=== PATIENT | male | born 1950 | race Caucasian/White ===

== ENCOUNTER → 2022-07-06 14:50 | Outpatient (BNVA) | payer MEDICARE, OTHER, SELFPAY | PROVIDERS: Family Provider Family Medicine; PCP Family Medicine; Visit Provider Internal Medicine Cardiovascular Disease | DX: R00.1 Bradycardia, unspecified (principal); I48.0 Paroxysmal atrial fibrillation; I10 Essential (primary) hypertension; Z98.890 Other specified postprocedural states; E78.5 Hyperlipidemia, unspecified; E03.9 Hypothyroidism, unspecified; Z87.891 Personal history of nicotine dependence | CPT/HCPCS: 93005; 99214 ==

== ENCOUNTER → 2023-03-09 10:24 | Outpatient (BNVA) | payer MEDICARE, OTHER, SELFPAY | PROVIDERS: Family Provider Family Medicine; PCP Family Medicine; Visit Provider Internal Medicine Cardiovascular Disease | DX: R00.1 Bradycardia, unspecified (principal); E78.5 Hyperlipidemia, unspecified; Z98.890 Other specified postprocedural states; I10 Essential (primary) hypertension; I48.0 Paroxysmal atrial fibrillation; Z79.01 Long term (current) use of anticoagulants | CPT/HCPCS: 99213 ==

== ENCOUNTER → 2023-08-31 10:04 | Outpatient (BNVA) | payer MEDICARE, OTHER, SELFPAY | PROVIDERS: Family Provider Family Medicine; PCP Family Medicine; Visit Provider Internal Medicine Cardiovascular Disease | DX: I48.0 Paroxysmal atrial fibrillation (principal); Z79.01 Long term (current) use of anticoagulants; R00.1 Bradycardia, unspecified; E78.5 Hyperlipidemia, unspecified; Z98.890 Other specified postprocedural states; I10 Essential (primary) hypertension; Z87.891 Personal history of nicotine dependence | CPT/HCPCS: 99213 ==

== ENCOUNTER → 2024-03-13 13:18 | Outpatient (BNVA) | payer MEDICARE, SELFPAY | PROVIDERS: Family Provider Family Medicine; PCP Family Medicine; Visit Provider Internal Medicine Cardiovascular Disease | DX: I48.0 Paroxysmal atrial fibrillation (principal); I10 Essential (primary) hypertension; Z98.890 Other specified postprocedural states; E78.5 Hyperlipidemia, unspecified; R00.1 Bradycardia, unspecified; Z79.01 Long term (current) use of anticoagulants | CPT/HCPCS: 99213 ==

== ENCOUNTER → 2024-09-15 16:52 | Outpatient (BNVA) | payer MEDICARE, OTHER, SELFPAY | PROVIDERS: Family Provider Family Medicine; PCP Family Medicine; Visit Provider Internal Medicine Cardiovascular Disease | DX: I48.0 Paroxysmal atrial fibrillation (principal); I45.10 Unspecified right bundle-branch block; R00.1 Bradycardia, unspecified | CPT/HCPCS: 93005 ==

== ENCOUNTER 2025-02-13 05:58 | Outpatient (CLI) | payer MEDICARE, OTHER, SELFPAY ==
--- NOTE | 2025-02-13 06:15 | USCV_ITS ---
Jesu Moore Age: 74 Gender: M : 1950 Exam Date: 02/13/2025 06:20 Ordering Phys: Colton Shields MD Technologist: Noel Ramirez Exam Location: [facility] [place] Indication: a fib BP: 144 / 80 HR: 57 Rhythm: Sinus Technical Quality: Adequate MEASUREMENTS (Male / Female) Normal Values 2D ECHO LV Diastolic Diameter PLAX 4.3 cm 4.2 - 5.9 / 3.9 - 5.3 cm IVS Diastolic Thickness 1.0 cm 0.6 - 1.0 / 0.6 - 0.9 cm IVS Systolic Thickness 1.4 cm LVPW Diastolic Thickness 1.9 cm 0.6 - 1.0 / 0.6 - 0.9 cm LVPW Systolic Thickness 1.5 cm LVOT Diameter 2.0 cm LV Ejection Fraction 2D Teich 61.5 % LV Ejection Fraction MOD 4C 72.4 % LV Ejection Fraction MOD 2C 68.5 % LV Ejection Fraction 2C AL 67.5 % LA Diameter 3.5 cm RA Systolic Volume 4C AL 44.9 ml RA Systolic Volume 4C MOD 47.7 ml LA Sys Volume AL 70.1 cm cubed LA Sys Volume Index AL 33.3 cm cubed/m squared Aorta at Sinotubular Diameter 3.1 cm IVC Diameter 1.9 cm M-MODE LA Ao Ratio MM 1.2 AV Cusp Separation MM 2.3 cm DOPPLER AV Peak Velocity 115.0 cm/s LVOT Peak Velocity 107.0 cm/s AV Area Cont Eq vti 3.0 cm squared AV Area Cont Eq pk 3.0 cm squared MV Peak Velocity 224.0 cm/s MV Area PHT 2.4 cm squared Mitral E to A Ratio 4.3 TR Peak Velocity 323.0 cm/s TR Peak Gradient 41.7 mmHg TR Mean Velocity 237.0 cm/s TR Mean Gradient 25.4 mmHg TR Velocity Time Integral 85.3 cm PV Peak Velocity 65.0 cm/s RV Ejection Time 0.3 s FINDINGS Left Ventricle Normal left ventricular size, systolic function and wall thickness, with no regional wall motion abnormalities. Left ventricular ejection fraction is estimated at 65 %. Grade III/IV diastolic dysfunction (restrictive filling pattern), severely elevated filling pressures. Right Ventricle The right ventricle is normal in size and function. Right Atrium The right atrium is normal in size. Left Atrium Moderately increased left atrial size. Mitral Valve Moderately thickened mitral valve. Severe mitral annular calcification. No mitral valve stenosis. Moderate mitral valve regurgitation. Aortic Valve Moderate aortic valve calcification. No aortic valve stenosis. Milld aortic valve regurgitation. Tricuspid Valve Structurally normal tricuspid valve without significant stenosis or regurgitation. Pulmonary artery systolic pressure is normal. Pulmonic Valve Structurally normal pulmonic valve without significant stenosis. There is no pulmonic regurgitation. Pericardium Normal pericardium without effusion. Aorta Normal ascending aorta dimension. IVC The inferior vena cava appears normal. CONCLUSIONS Normal left ventricular size, systolic function and wall thickness, with no regional wall motion abnormalities. Left ventricular ejection fraction is estimated at 65 %. Grade III/IV diastolic dysfunction (restrictive filling pattern), severely elevated filling pressures. Moderately increased left atrial size. Moderately thickened mitral valve. Severe mitral annular calcification. No mitral valve stenosis. Moderate mitral valve regurgitation Moderate aortic valve calcification. No aortic valve stenosis. Milld aortic valve regurgitation. There is no pericardial effusion. Right atrial pressure is around mm of mercury. Thomas De Leon MD (Electronically Signed) Final Date: 27 February 2025 20:08 S
== END 2025-02-13 05:59 | disposition home or self-care (01) ==
PROVIDERS: Family Provider Family Medicine; PCP Family Medicine; Visit Provider Family Medicine
DX: I48.91 Unspecified atrial fibrillation (principal); I08.0 Rheumatic disorders of both mitral and aortic valves
CPT/HCPCS: 93306

== ENCOUNTER 2025-03-05 10:02 | Outpatient (CLI) | payer MEDICARE, OTHER, SELFPAY ==
--- NOTE | 2025-03-05 10:07 | CT_ITS ---
WS: [id number] CT ABDOMEN AND PELVIS WITH AND WITHOUT CONTRAST HISTORY: BLOOD IN URINE TECHNIQUE: Unenhanced 3 mm axial imaging first performed through the abdomen. Post contrast imaging through the abdomen and pelvis. Oral contrast has not been provided. Sagittal and coronal reformats are submitted. All CT scans at [facility] use at least one of these dose optimization techniques: automated exposure control; mA and/or kV adjustment per patient size (includes targeted exams where dose is matched to clinical indication); or iterative reconstruction. CONTRAST: Omnipaque 350; 95 mL IV. DLP: 2030.19 mGy.cm COMPARISON: None available. 2 mm granuloma RIGHT lung base. No pneumonia. Moderate cardiomegaly. Prior CABG. Small hiatal hernia. RIGHT kidney: Normal size with no calcifications. No hydronephrosis. There are several tiny cortical cysts which do not enhance. No uroepithelial lesion. On the delayed imaging the ureter is nearly completely opacified with contrast. No filling defects. LEFT kidney: Normal size with no renal calcification or obstruction. No enhancing mass. 1.5 cm cortical cyst posterior upper pole. There is a small septation present with 2 adjacent cysts. Neither of these enhance. No uroepithelial lesions. Near complete opacification of the ureter. There is a slightly bulbous appearance of the distal LEFT ureter the ureter then becomes narrowed but no discrete mass is identified. There is no hydronephrosis. Marked bladder wall thickening throughout. Prostate gland is markedly enlarged encroaching into the urinary bladder. Heterogeneous prostate gland with calcifications. There is encroachment into the bladder. 1.4 cm cyst LEFT lobe of the liver. There are few additional scattered hypodensities which do not enhance. Normal portal vein. Gallbladder is slightly contracted. Normal spleen with granulomata. Mild pancreatic atrophy. No adrenal mass. No ascites or adenopathy. No GI tract obstruction. Constipation. No colitis or obstruction of the GI tract. Increase in lumbar lordosis. Lumbar scoliosis. No destructive bone lesions. CT/CT abdomen pelvis wo/w [id number] IMPRESSION: 1. No hydronephrosis or renal calcification. 2. 2 adjacent simple cysts or is single cyst with thin septation posterior upp er pole LEFT kidney. 3. Focal dilatation of the distal LEFT ureter. Beyond the dilatation the urete r is difficult to visualize and only minimally fills with contrast but appears stenotic. Evaluation by urology may be necessary. 4. Diffuse bladder wall thickening without significantly enlarged prostate gla nd encroaching into the bladder. Likely due to prostate hypertrophy with bladde r wall hypertrophy. Prostate carcinoma is not excluded by CT. 5. Diffuse constipation. 6. Moderate cardiomegaly. 7. Hepatic cyst.
[2025-03-05 11:03] LABS: Blood Urea Nitrogen 21 mg/dL (8-23)
== END 2025-03-05 10:03 | disposition home or self-care (01) ==
PROVIDERS: Family Provider Family Medicine; PCP Family Medicine; Visit Provider Family Medicine
DX: R31.9 Hematuria, unspecified (principal); N28.1 Cyst of kidney, acquired; N28.82 Megaloureter; R93.5 Abnormal findings on diagnostic imaging of other abdominal regions, including retroperitoneum; N32.89 Other specified disorders of bladder; N40.0 Benign prostatic hyperplasia without lower urinary tract symptoms; K59.00 Constipation, unspecified; I51.7 Cardiomegaly; K76.89 Other specified diseases of liver; J84.10 Pulmonary fibrosis, unspecified; Z98.890 Other specified postprocedural states; K44.9 Diaphragmatic hernia without obstruction or gangrene; R93.422 Abnormal radiologic findings on diagnostic imaging of left kidney; D73.89 Other diseases of spleen; K86.89 Other specified diseases of pancreas; M41.86 Other forms of scoliosis, lumbar region
CPT/HCPCS: 74178; 82565; 84520

== ENCOUNTER → 2025-03-25 16:04 | Outpatient (BNVA) | payer MEDICARE, OTHER, SELFPAY | PROVIDERS: Family Provider Family Medicine; PCP Family Medicine; Visit Provider Internal Medicine Cardiovascular Disease | DX: I48.0 Paroxysmal atrial fibrillation (principal); Z79.01 Long term (current) use of anticoagulants; I10 Essential (primary) hypertension; I08.0 Rheumatic disorders of both mitral and aortic valves; E78.5 Hyperlipidemia, unspecified; R31.9 Hematuria, unspecified; Z87.891 Personal history of nicotine dependence | CPT/HCPCS: 99214 ==

== ENCOUNTER 2025-07-15 07:36 | Inpatient (IN) | payer MEDICARE, OTHER, SELFPAY ==
[2025-07-15] VITALS (13 sets, daily range): BP systolic 127–145; BP diastolic 70–91; PULSE 48–72; RESP 16–17; TEMP 36.5–37.3; O2SAT 95–100; BMI 23.1
--- NOTE | 2025-07-15 07:43 | W.ED.ABDPA2 ---
HPI - Abdominal Pain General: Chief Complaint: Abdominal Pain Stated Complaint: Abd pain Time Seen by Provider: 07/15/25 07:39 History of Present Illness: 75-year-old male presents emergency room from home with complaint of right-sided abdominal pain radiating into the groin. Woke up around 3 AM this morning with severe pain. He had nausea and vomiting this morning states he feels quite a bit better now he did not have any hematochezia or melena. No fever sweats or chills. He has a known large right inguinal hernia and it has been more painful. Associated Symptoms: Denies chills, dysuria and fever(s) Related Data Home Medications ?Medication ?Instructions ?Recorded ?Confirmed acetaminophen 500 mg tablet 500 mg PO Q6H PRN Fever Or Pain 03/12/20 07/15/25 (Tylenol Extra Strength) ascorbic acid (vitamin C) 500 mg 1,000 mg PO DAILY 03/12/20 07/15/25 capsule atorvastatin 20 mg tablet 20 mg PO DAILY 03/12/20 07/15/25 clindamycin HCl 150 mg capsule 600 mg PO DIRECTED PRN 1 hour 03/12/20 07/15/25 prior to any dental procedure docusate sodium 100 mg capsule 100 mg PO DAILY PRN Constipation 03/12/20 07/15/25 (Colace) furosemide 20 mg tablet 20 mg PO DAILY 03/12/20 07/15/25 montelukast 10 mg tablet 10 mg PO DAILY PRN allergies 03/12/20 07/15/25 rivaroxaban 20 mg tablet (Xarelto) 20 mg PO DAILY 03/12/20 07/15/25 erythromycin with ethanol 2 % 1 applic topical ONCE PRN Acne 03/09/23 07/15/25 topical gel levothyroxine 137 mcg tablet See Rx Instructions .Route .COMPLEX 07/15/25 07/15/25 levothyroxine 75 mcg tablet See Rx Instructions .Route .COMPLEX 07/15/25 07/15/25 melatonin 5 mg tablet 5 mg PO BEDTIME sleep 07/15/25 07/15/25 ksyxuewf-lt-vdcgo 300 mcg-K 60 1 tab PO DAILY 07/15/25 07/15/25 mcg-lycop 600 mcg-lutein 300 mcg tablet (Centrum Silver Men) omega-3s 300 ic-dmn-yzx-other 1 cap PO DAILY 07/15/25 07/15/25 sllog2f-leyh oil 1,000 mg capsule ([place]-3 Fish Oil) polyethylene glycol 3350 17 17 g PO DAILY constipation 07/15/25 07/15/25 gram/dose oral powder (Miralax) Previous Rx's ?Medication ?Instructions ?Recorded sotalol 120 mg tablet 120 mg PO BID #180 tabs 01/16/25 Allergies Allergy/AdvReac Type Severity Reaction Status Date / Time levofloxacin (From Levaquin) Allergy Unknown Unknown Verified 03/25/25 16:34 Penicillins Allergy Unknown Unknown Verified 03/25/25 16:34 Review of Systems Const: Denies: fever(s) or chills Card: Denies: chest pain Resp: Denies: dyspnea GI: Reports: abdominal pain : Denies: dysuria, urinary frequency or urinary urgency Musc: Denies: neck pain or back pain Skin/Breast: Denies: rash PFSH ED PFSH: Medical History Anticoagulation adequate with anticoagulant therapy Hypothyroidism Hyperlipidemia History of cardioversion Multiple HTN (hypertension) Atrial fibrillation Surgical History History of mitral valve repair S/P pericardiocentesis X2 Family History Father Atrial fibrillation Brother Atrial fibrillation Other Cancer Social History Smoking and tobacco/nicotine status: former use of tobacco/nicotine Physical Exam Const: GENERAL APPEARANCE: cooperative ORIENTATION/CONSCIOUSNESS: Yes awake, Yes oriented to person, Yes oriented to place and Yes oriented to time HENMT: COMMON NORMALS: normocephalic, atraumatic and hearing grossly normal bilaterally HEAD & SCALP: normocephalic and atraumatic Resp: COMMON NORMALS: normal respiratory effort, No retractions, No use of accessory muscles and clear to auscultation bilaterally AUSCULTATION: clear to auscultation bilaterally Cardio: COMMON NORMALS: regular rate, regular rhythm and No murmurs present (Cardio) RATE: regular rate RHYTHM: regular rhythm GI: COMMON NORMALS: Soft to palpation and No hepatosplenomegaly present AUSCULTATION: Yes normoactive bowel sounds PALPATION: Yes Soft to palpation, No Tenderness to palpation present (GI), No Guarding due to palpation present (GI) and Yes No hepatosplenomegaly present : OTHER: Large right inguinal hernia with portions of bowel extending into the scrotum. Unable to reduce Extremity: COMMON NORMALS: normal to inspection, capillary refill normal, no clubbing, cyanosis or edema, no calf tenderness and no pedal edema Neuro: SENSORIUM/ORIENTATION: Yes oriented to person, Yes oriented to place and Yes oriented to time Skin: COMMON NORMALS: no rashes or lesions noted GENERAL SKIN EXAM: no rashes or lesions noted Course Vital Signs: Vital signs: Vital Signs Temperature 99.1 F 07/15/25 13:10 Pulse Rate 58 L 07/15/25 13:10 Respiratory Rate 17 07/15/25 13:10 Blood Pressure 133/73 07/15/25 13:10 Pulse Oximetry 100 07/15/25 13:10 Oxygen Delivery Me thod Room Air 07/15/25 13:10 MDM - Abdominal Pain Medical Decision Making CT shows mesocolon in the hernia had a difficult time trying to get it reduced Dr. Ford seen and felt he was able to get it to reduce but it recurred immediately. On the CT it looks like he has some tethering effect of the bowel. Dr. Ford seen the patient discussed with him offered admission for surgical repair of the hernia patient decided he would like to proceed with that. As long as he is laying flat not eating or drinking he seems to be tolerating well not having any further symptoms Medical Records I reviewed the patient's medical records. Lab Data I reviewed the patient's lab results. 07/15/25 08:10 07/15/25 08:10 Labs/Radiology: Radiology Impressions Abdomen/Pelvis CT 07/15/25 07:51 IMPRESSION: 1. Fluid-filled RIGHT inguinal hernia is new since 03/05/2025. Small bowel loop abuts the inguinal hernia with a tiny amount of herniation. This loop does not appear strangulated but there is fluid dilatation of small bowel loops in the pelvis and RIGHT lower quadrant with bowel wall thickening. 2. Induration and vessels engorgement in the RIGHT lower quadrant mesentery with swirling suggesting tethered bowel. Recommend correlation for developing small bowel obstruction or possibly ischemic bowel. No pneumatosis or free air. 3. Small amount of free fluid in the pelvis. 4. No other acute findings. Notified Fausto Be DO at 07/15/2025 8:57 AM. Laboratory Results WBC 8.13 10^3/uL (3.29-11.43) 07/15/25 08:10 RBC 4.29 10^6/uL (3.85-5.65) 07/15/25 08:10 Hgb 13.10 g/dL (11.27-16.99) 07/15/25 08:10 Hct 40.2 % (37-53) 07/15/25 08:10 MCV 93.7 fl (82-101) 07/15/25 08:10 MCH 30.5 pg (27-33) 07/15/25 08:10 MCHC 32.6 g/dL (30-55) 07/15/25 08:10 RDW 13.4 % (12.1-15.1) 07/15/25 08:10 Plt Count 167 10^3/cmm (157-399) 07/15/25 08:10 MPV 9.3 fL (7.4-10.4) 07/15/25 08:10 Neut % (Auto) 85.4 % 07/15/25 08:10 Lymph % (Auto) 8.1 % 07/15/25 08:10 Harper % (Auto) 5.5 % 07/15/25 08:10 Eos % (Auto) 0.4 % 07/15/25 08:10 Baso % (Auto) 0.2 % 07/15/25 08:10 Neut # (Auto) 6.94 10^3/uL (1.8-7.7) 07/15/25 08:10 Lymph # (Auto) 0.7 10^3/uL (0.8-4.8) L 07/15/25 08:10 Harper # (Auto) 0.5 10^3/uL (0.2-0.9) 07/15/25 08:10 Eos # (Auto) 0.0 10^3/uL (0.0-0.8) 07/15/25 08:10 Baso # (Auto) 0.0 10^3/uL (0.0-0.1) 07/15/25 08:10 Nucleated RBC % (auto) 0 % 07/15/25 08:10 Nucleated RBCs # 0.0 /100WBC 07/15/25 08:10 Sodium 139 mmol/L (136-145) 07/15/25 08:10 Potassium 4.4 mmol/L (3.5-5.1) 07/15/25 08:10 Chloride 103 mmol/L (98-107) 07/15/25 08:10 Carbon Dioxide 26 mmol/L (22-29) 07/15/25 08:10 Anion Gap 14.4 (5-19) 07/15/25 08:10 BUN 21 mg/dL (8-23) 07/15/25 08:10 Creatinine 0.8 mg/dL (0.7-1.2) 07/15/25 08:10 GFR Calculation Not Reportable 07/15/25 08:10 Glucose 151 mg/dL (65-115) H 07/15/25 08:10 Calculated Osmolality 294 mOsm/kg (285-295) 07/15/25 08:10 Lactic Acid 1.5 mmol/L (0.5-2.2) 07/15/25 08:10 Calcium 9.5 mg/dL (8.5-10.5) 07/15/25 08:10 Total Bilirubin 0.8 mg/dL (0.15-1.2) 07/15/25 08:10 AST 26 U/L (0-40) 07/15/25 08:10 ALT 28 U/L (0-41) 07/15/25 08:10 Alkaline Phosphatase 81 U/L (40-130) 07/15/25 08:10 Total Protein 6.7 g/dL (6.6-8.7) 07/15/25 08:10 Albumin 4.4 g/dL (3.5-5.2) 07/15/25 08:10 Globulin 2.3 g/dL (1.3-4.6) 07/15/25 08:10 Lipase 22 U/L (13-60) 07/15/25 08:10 Urine Color Yellow (Yellow) 07/15/25 08:45 Urine Appearance Clear (CLEAR) 07/15/25 08:45 Urine pH 7.5 (5-7) 07/15/25 08:45 Ur Specific [place] 1.018 (1.005-1.030) 07/15/25 08:45 Urine Protein Negative (Negative) 07/15/25 08:45 Urine Glucose (UA) Negative (Normal) 07/15/25 08:45 Urine Ketones 2+ (Negative) H 07/15/25 08:45 Urine Blood Negative (Negative) 07/15/25 08:45 Urine Nitrate Negative (Negative) 07/15/25 08:45 Urine Bilirubin Negative (Negative) 07/15/25 08:45 Urine Urobilinogen 1.0 mg/dL (Negative) 07/15/25 08:45 Ur Leukocyte Esterase 1+ (Negative) A 07/15/25 08:45 Urine RBC 0-2 /hpf (0-2) 07/15/25 08:45 Urine WBC 0-5 /hpf (0-5) 07/15/25 08:45 Ur Squamous Epith Cells 0-5 /hpf (0-5) 07/15/25 08:45 Amorphous Sediment Not Reportable 07/15/25 08:45 Urine Bacteria None seen /hpf (NONE) 07/15/25 08:45 Hyaline Casts 2.46 /lpf 07/15/25 08:45 All radiology interpretation(s) finalized by discharge Discharge Plan Discharge Patient Disposition: Admitted As Inpatient Admit Provider: Gibson Ford Clinical Impression: Incarcerated right inguinal hernia, Anticoagulation adequate with anticoagulant therapy, Mitral valve regurgitation, History of mitral valve repair Condition: Stable Coding Level of Care Code ED Child & Adolescent Psychiatrist for Whit Latham
--- OUTSIDE RECORDS SUMMARY | 2025-07-15 07:49 | XMS_ITS | Patient Health Record ---
Author Organization [facility] Address [address] [place] [address] Care Team Providers Care Brick Kiln Worker Name Role Phone Cornelius MARSHALL, Colton Primary Care Provider UnavailPaulina Lewis Unavailable Justin Schaefer Unavailable [phone] Allergies Allergen (clinical drug ingredient) Drug/Non Drug Allergy documented on EMR Reaction Allergy Type Onset Date Status levofloxacin Levofloxacin Unknown Drug Allergy A ctive Penicillin Unknown Drug Allergy Active Results Component Value Reference Range Notes UA Without Micro-Auto, [facility] [place] - [id number] Reviewed date:04/29/2025 01:20:09 PM Interpretation: Performing Lab: Notes/Report: Bili - Ketones - Sp [place] 1.020 Blood - pH 6.0 Protein - Urobili - Nitrites - Leukocytes - UA Without Micro-Auto, [facility] [place] - [id number] Reviewed date:04/01/2025 01:28:18 PM Interpretation: Performing Lab: Notes/Report: Glucose 0 Bili 0 Ketones 0 Sp [place] 1.010 Blood 0 pH 7.0 Protein 0 Urobili 0 Nitrites 0 Leukocytes 0 Reason For Referral Reason Hematuria Diagnosis 1 Hematuria, unspecifi ed type (R31.9) Referring Provider First Name Colton Referring Provider Last Name Cornelius Referring Provider Speciality Family Med icine Referred Organization [facility] Referred Provider Justin Schaefer Referred Address [address],[place],[address], Referred Provider Specialty Urology General Notes Sabina Jacobo 07/2025 11:36:46 AM >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 Referral Priority Routine Medications Medication SIG (Take, Route, Frequency, Duration) Notes Start Date End Date Status Centrum Silver - Tablet as directed Orally Active Sotalol HCl 120 MG Tablet 1 tablet Orall y every 12 hrs Active Clindamycin HCl 150 MG Capsule 3 capsules Orally every 8 hrs Active Tylenol Extra Strength 500 MG Tablet 1 tablet as needed Orally every 6 hrs Active Colace 100 MG Capsule 1 capsule as neede d Orally Once a day Active Melatonin 5 MG Tablet 1 tablet in the ev ening Orally Once a day Active MiraLax 17 GM/SCOOP Powder 1 scoop mixed with 8 ounces of fluid Orally Once a day Active Montelukast Sodium 10 MG Tablet 1 tablet Orally Once a day Active Atorvastatin Calcium 20 MG Tablet 1 tablet Orally Once a day Active [place] 3 1200 MG Capsule 1 capsule Orally Once a day Active Erythromycin 2 % Gel 1 application Exter aisha Twice a day Active Xarelto 20 MG Tablet 1 tablet with food Orally Once a day Active Furosemide 20 MG Tablet 1 tablet Orally Once a day Active Levothyroxine Sodium 137 MCG Tablet 1 tablet in the morning on an empty stomach Orally Once a day Active Levothyroxine Sodium 75 MCG Tablet 1 tablet in the morning on an empty stomach Orally Once a day Active Vitamin C 1000 MG Tablet 1 tablet Orally Once a day Active Social History Tobacco Use: Social History Observation Description Date Details (start date - stop date) Former Smoker NA - NA Social History Tobacco Use: Social Info Question Answer Notes Tobacco Control (Standard) Tobacco use: Former smoker How long has it been since you last smoked? Greater than 10 years Section Notes: moustapha caffeine moustapha alcohol moustapha caffeine moustapha alcohol Problems Problem Type SNOMED Code ICD Code Onset Dates Problem Status W/U Status Risk Notes Problem Family history of bladder cancer (386244346) Family history of bladder cancer (Z80.52) Active confirmed Problem CT of abdomen abnormal (7198768614837 9107) Abnormal CT of the abdomen (R93.5) Active confirmed Problem BPH without obstruction/lo wer urinary tract symptoms (N40.0) Active confirmed Vital Signs Heart Rate 71 /min 04/01/2025 Temperature 99.2 degrees Fahrenheit 04/29/2025 Height-cm 182.88 cm 04/29/2025 Blood pressure diastolic 99 mm Hg 04/01/2025 Weight-kg 82.28 kg 04/29/2025 Height 72 in 04/29/2025 Blood pressure systolic 141 mm Hg 04/01/2025 Weight 181.4 lbs 04/29/2025 BMI 24.6 kg/m2 04/29/2025 Procedures Procedure Date Ordered Date Performed Result Body Sit e PVR (Post Void Residual) 04/29/2025 04/29/2025 66mL Encounters Encounter Location Date Provider Diagnosis [facility] [address] [place] [address] 04/01/2025 Paulina Bates Gross hematuria R31.0 ; Abnormal CT of the abdomen R93.5 and Family history of bladder cancer Z80.52 [facility] [address] [place] [address] [address] [place] [address] 04/29/2025 Justin Schaefer Gross hematuria R31.0 ; Renal cyst N28.1 and BPH without obstruction/lower urinary tract symptoms N40.0 [facility] [address] [place] [address] [address] [place] [address] 02/25/2025 Justin [facility] [address] [place] [address] [address] [place] [address] 03/31/2025 Justin [facility] [address] [place] [address] [address] [place] [address] 04/01/2025 Justin Olive [facility] [address] [place] [address] 04/01/2025 Justin Schaefer Family history of bladder cancer Z80.52 [facility] [address] [place] [address] 04/02/2025 Justin Schaefer Encounter for screening for malignant neoplasm of prostate Z12.5 [facility] [address] [place] [address] 04/29/2025 Justin Rojassay [facility] [address] [place] [address] 05/12/2025 Justin Olive [facility] [address] [place] [address] 05/01/2025 Paulina Bates Assessments Encounter Date Diagnosis (ICD Code) Assessment Notes Treatment Notes Treatment Clinical Notes Section Notes 04/01/2025 Family history of bladder cancer (ICD-10 - Z80.52) 04/02/2025 Encounter for screening for malignant neoplasm of prostate (ICD-10 - Z12.5) 04/29/2025 Gross hematuria (ICD-10 - R31.0) 04/29/2025 Renal cyst (ICD-10 - N28.1) 04/01/2025 Gross hematuria (ICD-10 - R31.0) PLAN - PATIENT WILL CONTACT OFFICE OF THEY HAVE ANY GROSS OR DUSTIN BLEEDING. 04/01/[address] of the abdomen (ICD-10 - R93.5) THICKENED BLADDER, PROSTATE ENCROACHED IN BLADDER ON CT 04/01/2025 Family history of bladder cancer (ICD-10 - Z80.52) FATHER HAD AND FROM BLADDER CANCER 04/29/2025 BPH without obstruction/lo wer urinary tract symptoms (ICD-10 - N40.0) 04/01/[address] UP WITH DR SCHAEFER FOR CYSTOSCOPY, FIRST AVAILABLE, Family hx of bladder cancer, former smoker, thickened bladder on CT, UA, PVR, PSA 04/29/2025 Other have images from [facility] and let me know when that is finished. See [place] 3 months with ua Will evaluate renal cysts, and if needed repeat imaging. Plan Of Treatment Pending Test Test Name Order Date PSA Diagnostic--[id number] 04/02/2025 Future Test Test Name Order Date PSA Diagnostic--[id number] 08/19/2025 Next Appt Details Provider Name:Paulina Davies, 07/30/2025 02:30:00 PM, [address], [place], [address], Insurance Providers Payer Name Payer Address Payer Phone Subscriber Number Group Number Insured Name Patient Relationship to Insured Coverage Start Date Coverage End Date [place] [address] [place] [phone] [id number] Jesu Moore Self - patient is the insured [place] [employer] Supp[employer] [address] [address] [place] [address] [phone] [id number] Jesu Moore Self - patient is the insured Medical (General) History Surgical History Surgery Date(Month/Year) enoscopy 05/10/2018 electrical cardioversion 01/13/2015 colonoscopy 08/12/2014 electrical cardioversion 04/05/2010 pericardiocentesis 04/05/2010 pericardiocentesis 03/18/2010 electrical cardio shock 03/18/2010 open heart surgery 01/10/2010
--- NOTE | 2025-07-15 07:51 | CT_ITS ---
WS: [id number] CT ABDOMEN PELVIS TECHNIQUE: Noncontrast CT of the abdomen and pelvis with coronal and sagittal reformatted images. CLINICAL INFORMATION: Abdominal pain COMPARISON: 03/05/25 DLP: 494.[address] scans at [facility] use at least one of these dose optimization techniques: automated exposure control; mA and/or kV adjustment per patient size (includes targeted exams where dose is matched to clinical indication); or iterative reconstruction. FINDINGS: Thickening with fluid-filled small bowel loops in the pelvis extending into the RIGHT lower quadrant. A small bowel loop slightly extends into the RIGHT proximal inguinal hernia with fluid extending along the RIGHT inguinal hernia into the scrotum. Swirling suggesting tethering of the mesentery in the RIGHT lower quadrant. No pneumatosis or free air. Edema and induration in the RIGHT lower quadrant mesentery with a small amount of free fluid in the pelvis. Small amount of perihepatic fluid. Recommend correlation for developing small bowel obstruction, inflammation or ischemia due to tethered bowel. Bowel wall enhancement cannot be evaluated on this noncontrast study. Moderate pancolonic constipation. Air-fluid level in the stomach. Small esophageal hiatal hernia. Normal noncontrast liver. A few hepatic cysts. A few tiny nodules in the lung bases. Tiny fat-containing umbilical hernia. Adrenal glands are normal. No hydronephrosis in either kidney. Markedly enlarged p rostate. Evidence of bladder outlet obstruction. CT/CT abdomen pelvis wo con [id number] IMPRESSION: 1. Fluid-filled RIGHT inguinal hernia is new since 03/05/2025. Small bowel loop abuts the inguinal hernia with a tiny amount of herniation. This loop does not appear strangulated but there is fluid dilatation of small bowel loops in the pelvis and RIGHT lower quadrant with bowel wall thickening. 2. Induration and vessels engorgement in the RIGHT lower quadrant mesentery wi th swirling suggesting tethered bowel. Recommend correlation for developing sma ll bowel obstruction or possibly ischemic bowel. No pneumatosis or free air. 3. Small amount of free fluid in the pelvis. 4. No other acute findings. Notified Fausto Be DO at 07/15/2025 8:57 AM.
[2025-07-15 08:18] LABS: Hematocrit 40.2 % (37-53); Hemoglobin 13.10 g/dL (11.27-16.99); Mean Corpuscular HGB Conc 32.6 g/dL (30-55); Mean Corpuscular Hemoglobin 30.5 pg (27-33); Mean Corpuscular Volume 93.7 fl (82-101); Nucleated Red Blood Cells % 0 %; Platelet Count 167 10^3/cmm (157-399); Red Blood Count 4.29 10^6/uL (3.85-5.65); White Blood Count 8.13 10^3/uL (3.29-11.43)
[2025-07-15 08:36] LABS: Alanine Aminotransferase 28 U/L (0-41); Albumin Level 4.4 g/dL (3.5-5.2); Alkaline Phosphatase 81 U/L (40-130); Anion Gap 14.4 (5-19); Aspartate Amino Transferase 26 U/L (0-40); Blood Urea Nitrogen 21 mg/dL (8-23); Calcium 9.5 mg/dL (8.5-10.5); Carbon Dioxide 26 mmol/L (22-29); Chloride 103 mmol/L (98-107); Creatinine Clr Calc Pharmacy 84.8593; Globulin 2.3 g/dL (1.3-4.6); Glucose 151 mg/dL (65-115); Lipase 22 U/L (13-60); Osmolality Calculated 294 mOsm/kg (285-295); Potassium 4.4 mmol/L (3.5-5.1); Sodium 139 mmol/L (136-145); Total Protein 6.7 g/dL (6.6-8.7)
[2025-07-15 08:38] LABS: Lactic Sepsis W/Reflex 1.5 mmol/L (0.5-2.2)
[2025-07-15 08:54] LABS: Glucose Urine UA Negative (Normal); Nitrate Urine Negative (Negative); Specific Gravity, Urine 1.018 (1.005-1.030)
[2025-07-15 08:59] LABS: Add Urine Microscopic? YES
--- NOTE | 2025-07-15 09:58 | PM.HP ---
Providers/Chief Complaint Primary Care Provider: Colton Shields MD Chief Complaint: Abd pain History of Present Illness Jesu Moore is a 75 year old male with a history of right inguinal hernia over the last 2 years who presents for acute abdominal pain and right hernia incarceration. Patient states that he will often is able to push his hernia in but this morning he woke up with severe abdominal pain in the right side of the abdomen that would not subside and he was not able to fully reduce his hernia and therefore presented to the ER. In the ER reduction maneuvers were attempted the hernia was not able to completely be reduced and laboratory workup was normal but a CT scan of the abdomen and pelvis show evidence of full fluid right inguinal hernia and some tethering of the small bowel in the right lower quadrant that may indicate the possibility of a beginning of a small bowel obstruction versus bowel ischemia. I was consulted for these findings. By the moment of my evaluation patient abdominal pain had completely subsided. Medications/Allergies Home Medications ?Medication ?Instructions ?Recorded ?Confirmed ?Last Taken ?Type acetaminophen 500 mg tablet 500 mg PO Q6H PRN Fever Or Pain 03/12/20 07/15/25 Unknown History (Tylenol Extra Strength) ascorbic acid (vitamin C) 500 mg 1,000 mg PO DAILY 03/12/20 07/15/25 07/14/25 History capsule atorvastatin 20 mg tablet 20 mg PO DAILY 03/12/20 07/15/25 07/14/25 History clindamycin HCl 150 mg capsule 600 mg PO DIRECTED PRN 1 hour 03/12/20 07/15/25 Unknown History prior to any dental procedure docusate sodium 100 mg capsule 100 mg PO DAILY PRN Constipation 03/12/20 07/15/25 07/14/25 History (Colace) furosemide 20 mg tablet 20 mg PO DAILY 03/12/20 07/15/25 07/14/25 History montelukast 10 mg tablet 10 mg PO DAILY PRN allergies 03/12/20 07/15/25 07/14/25 History rivaroxaban 20 mg tablet (Xarelto) 20 mg PO DAILY 03/12/20 07/15/25 07/14/25 History erythromycin with ethanol 2 % 1 applic topical ONCE PRN Acne 03/09/23 07/15/25 Unknown History topical gel sotalol 120 mg tablet 120 mg PO BID #180 tabs 01/16/25 07/15/25 07/14/25 Rx levothyroxine 137 mcg tablet See Rx Instructions .Route .COMPLEX 07/15/25 07/15/25 07/12/25 History levothyroxine 75 mcg tablet See Rx Instructions .Route .COMPLEX 07/15/25 07/15/25 07/15/25 07:00 History melatonin 5 mg tablet 5 mg PO BEDTIME sleep 07/15/25 07/15/25 07/14/25 20:00 History [id number]-[id number] 300 mcg-K 60 1 tab PO DAILY 07/15/25 07/15/25 07/14/25 History mcg-lycop 600 mcg-lutein 300 mcg tablet (Centrum Silver Men) omega-3s 300 pg-git-ppd-other 1 cap PO DAILY 07/15/25 07/15/25 07/14/25 History nqcob9v-[id number] oil 1,000 mg capsule ([place]-3 Fish Oil) polyethylene glycol 3350 17 17 g PO DAILY constipation 07/15/25 07/15/25 Unknown History gram/dose oral powder (Miralax) Allergies Allergy/AdvReac Type Severity Reaction Status Date / Time levofloxacin (From Levaquin) Allergy Unknown Unknown Verified 03/25/25 16:34 Penicillins Allergy Unknown Unknown Verified 03/25/25 16:34 PFSH Acute PFSH: Medical History (Updated 07/15/25 @ 10:03 by Gibson Ford MD) Anticoagulation adequate with anticoagulant therapy Hypothyroidism Hyperlipidemia History of cardioversion Multiple HTN (hypertension) Atrial fibrillation Surgical History History of mitral valve repair S/P pericardiocentesis X2 Family History Father Atrial fibrillation Brother Atrial fibrillation Other Cancer Social History Smoking and tobacco/nicotine status: former use of tobacco/nicotine Vitals/I&O/Wt Last Vital Signs Temp 97.8 F 07/15/25 07:38 Pulse 52 L 07/15/25 09:21 Resp 16 07/15/25 09:21 BP 143/91 07/15/25 08:51 Pulse Ox 97 07/15/25 09:21 O2 Del Method Room Air 07/15/25 09:21 Weight last 48 hrs Weight 171 lb Physical Exam Narrative: Patient shows a benign abdominal exam with abdomen that soft nontender nondistended and has good bowel sounds. In the right inguinal region there is a large inguinoscrotal hernia, I was able to carefully completely reduce the hernia but as soon as you stop the pressure the hernia will come back Data 07/15/25 08:10 07/15/25 08:10 A&P Assessment and plan 1. Anticoagulation adequate with anticoagulant therapy: 2. Mild aortic valve regurgitation: 3. Atrial fibrillation: 4. Incarcerated right inguinal hernia: Plan: This is a 75-year-old male presented with an incarcerated right inguinal hernia and concern for the possibility of developing strangulation. The hernia was able to be reduced at the bedside abdominal pain has resolved patient has normal vital signs normal laboratory workup normal like state level and in examination has good bowel sounds these tell is that the possibility of bowel ischemia at this time is low. Since patient does have a large hernia I think it will be appropriate to proceed with repair during this presentation. I have offered open right inguinal hernia repaired with mesh. I have explained to the patient all risk benefits operation including the risk of injury to adjacent structures including the bladder great vessels small bowel colon testicle and blood vessels to the testicle. I have explained to him that being inguinoscrotal hernia there is a good amount of risk of producing necrosis of the testicle requiring orchiectomy in the future. He is at high risk for seroma formation and hematoma formation due to the size of his hernia. I have also explained to the patient that even though at this point in time there is no clear evidence of bowel ischemia per physical examination laboratory workup th there is always a small chance that in the following days he develops symptoms concerning for ischemia although unlikely. Patient shows understanding agrees with the plan. He is on rivaroxaban for atrial fibrillation. His last dose was yesterday morning. Will plan for surgery tomorrow morning. Patient will be admitted we will obtain a medical team consultation for management of atrial fibrillation and preoperative optimization, he will remain in the full liquid diet today n.p.o. after midnight we will recheck labs and lactate level in the morning. PDMP PDMP Reviewed: Not Reviewed Attestations Medical Necessity Statement*: Patient will require at least 24 to 48 hours of hospital stay for management of incarcerated right inguinal hernia. Coding Level of Care Code Acute Code for Chg Fwd Diagnoses Anticoagulation adequate with anticoagulant therapy Z79.01 Mild aortic valve regurgitation I35.1 Atrial fibrillation I48.91 Incarcerated right inguinal hernia K40.30
--- NOTE | 2025-07-15 10:29 | ECG_ITS ---
[facility] Test Date: 2025-07-15 Pat Name: Jesu Moore Department: Room: Gender: Male Rn Bsn: : [id number] Requested By: Fausto Kam Order Number: [id number] Jose Carlos MD: Nicolas Babin M.D. Measurements Intervals [place] Rate: 61 P: 80 FL: 190 QRS: 56 QRSD: 93 T: 43 QT: 444 QTc: 450 Interpretive Statements SINUS RHYTHM POSSIBLE RIGHT VENTRICULAR CONDUCTION DELAY [RSR (QR) IN V1/V2] MODERATE T-WAVE ABNORMALITY, CONSIDER ANTERIOR ISCHEMIA [-0.1+ mV T-WAVE IN V3/V4] Compared to ECG 09/15/2024 16:56:01 T-wave abnormality now present Possible ischemia now present Sinus bradycardia no longer present Incomplete right bundle-branch block no longer present Electronically Signed On 07-15-2025 22:25:40 CDT by Nicolas Babin M.D. [email or web address]
--- NOTE | 2025-07-15 12:30 | PM.CONSULT ---
Providers/Reason For Consult Consulting Physician/Specialty*: Hospitalist Reason for Consult*: Medical management Attending Physician: Gibson Ford MD Primary Care Provider: Colton Shields MD History of Present Illness History of Present Illness Jesu Moore is a 75 year old gentleman with a history of atrial fibrillation on rivaroxaban (Xarelto), hypothyroidism, hyperlipidemia, hypertension, and prior mitral valve repair who presented to the emergency department with abdominal pain. Imaging revealed a right inguinal hernia felt to be incarcerated; surgery plans mesh repair tomorrow morning. Last Xarelto dose was yesterday evening. He takes sotalol 120 mg twice daily for rate control; resting heart rate is often in the 40s, and was ~60 bpm after a delayed morning dose today. Uses furosemide 20 mg daily for intermittent leg swelling. Denies current abdominal pain, chest pain, shortness of breath, fever, chills, cough, nausea, vomiting, diarrhea, melena, or rash. Reports hematuria in February 2023, evaluated with cystoscopy that was negative; no recurrence. Former smoker; denies alcohol or illicit drug use. Lives with and is primary caregiver for wheelchair-bound . Hernia initially occurred during lifting two years ago but repair was delayed due to caregiving responsibilities. Review of Systems Const: Denies: fever(s), chills, body aches or malaise ENMT: Denies: throat pain Card: Denies: chest pain, edema, pre-syncope or dyspnea on exertion Resp: Denies: dyspnea, productive cough, change in phlegm color or hemoptysis GI: Denies: abdominal pain, nausea, vomiting, diarrhea, constipation, hematochezia or melena : Denies: flank pain, difficulty urinating, urinary frequency or hematuria Musc: Denies: back pain, joint swelling or joint redness Skin/Breast: Denies: rash or new lesions Neuro: Denies: headache(s) or confusion Medications/Allergies Home Medications ?Medication ?Instructions ?Recorded ?Confirmed ?Last Taken ?Type acetaminophen 500 mg tablet 500 mg PO Q6H PRN Fever Or Pain 03/12/20 07/15/25 Unknown History (Tylenol Extra Strength) ascorbic acid (vitamin C) 500 mg 1,000 mg PO DAILY 03/12/20 07/15/25 07/14/25 History capsule atorvastatin 20 mg tablet 20 mg PO DAILY 03/12/20 07/15/25 07/14/25 History clindamycin HCl 150 mg capsule 600 mg PO DIRECTED PRN 1 hour 03/12/20 07/15/25 Unknown History prior to any dental procedure docusate sodium 100 mg capsule 100 mg PO DAILY PRN Constipation 03/12/20 07/15/25 07/14/25 History (Colace) furosemide 20 mg tablet 20 mg PO DAILY 03/12/20 07/15/25 07/14/25 History montelukast 10 mg tablet 10 mg PO DAILY PRN allergies 03/12/20 07/15/25 07/14/25 History rivaroxaban 20 mg tablet (Xarelto) 20 mg PO DAILY 03/12/20 07/15/25 07/14/25 History erythromycin with ethanol 2 % 1 applic topical ONCE PRN Acne 03/09/23 07/15/25 Unknown History topical gel sotalol 120 mg tablet 120 mg PO BID #180 tabs 01/16/25 07/15/25 07/14/25 Rx levothyroxine 137 mcg tablet See Rx Instructions .Route .COMPLEX 07/15/25 07/15/25 07/12/25 History levothyroxine 75 mcg tablet See Rx Instructions .Route .COMPLEX 07/15/25 07/15/25 07/15/25 07:00 History melatonin 5 mg tablet 5 mg PO BEDTIME sleep 07/15/25 07/15/25 07/14/25 20:00 History ylvjtnwt-ko-djiyv 300 mcg-K 60 1 tab PO DAILY 07/15/25 07/15/25 07/14/25 History mcg-lycop 600 mcg-lutein 300 mcg tablet (Centrum Silver Men) omega-3s 300 hj-bju-lqj-other 1 cap PO DAILY 07/15/25 07/15/25 07/14/25 History qevay3s-uucq oil 1,000 mg capsule ([place]-3 Fish Oil) polyethylene glycol 3350 17 17 g PO DAILY constipation 07/15/25 07/15/25 Unknown History gram/dose oral powder (Miralax) Allergies Allergy/AdvReac Type Severity Reaction Status Date / Time levofloxacin (From Levaquin) Allergy Unknown Unknown Verified 03/25/25 16:34 Penicillins Allergy Unknown Unknown Verified 03/25/25 16:34 PFSH Acute PFSH: Medical History Anticoagulation adequate with anticoagulant therapy Hypothyroidism Hyperlipidemia History of cardioversion Multiple HTN (hypertension) Atrial fibrillation Surgical History History of mitral valve repair S/P pericardiocentesis X2 Family History Father Atrial fibrillation Brother Atrial fibrillation Other Cancer Social History Smoking and tobacco/nicotine status: former use of tobacco/nicotine Vitals/I&O/Wt Last Vital Signs Temp 97.8 F 07/15/25 07:38 Pulse 65 07/15/25 11:51 Resp 16 07/15/25 11:03 BP 145/72 07/15/25 11:51 Pulse Ox 99 07/15/25 11:51 O2 Del Method Room Air 07/15/25 11:03 Weight last 48 hrs Weight 77.564 kg Physical Exam Const: COMMON NORMALS: patient oriented x3 and alert GENERAL APPEARANCE: cooperative ORIENTATION/CONSCIOUSNESS: Yes awake HENMT: COMMON NORMALS: oropharynx normal Neck/C-Spine: COMMON NORMALS: no JVD Resp: COMMON NORMALS: normal respiratory effort and clear to auscultation bilaterally AUSCULTATION: clear to auscultation bilaterally Cardio: COMMON NORMALS: no JVD, regular rhythm, S1 normal heart sound present, S2 normal heart sound present and No murmurs present (Cardio) RHYTHM: regular rhythm HEART SOUNDS: S1 normal heart sound present and S2 normal heart sound present GI: COMMON NORMALS: Normal to inspection, nondistended, normoactive bowel sounds present, Soft to palpation and non-tender PALPATION: Yes Soft to palpation Extremity: COMMON NORMALS: no joint enlargement and no pedal edema Neuro: COMMON NORMALS: patient oriented x3 and moves all extremities SENSORIUM/ORIENTATION: Yes alert Skin: COMMON NORMALS: no rashes or lesions noted GENERAL SKIN EXAM: no rashes or lesions noted Data 07/15/25 08:10 07/15/25 08:10 A&P Assessment and plan 1. Incarcerated right inguinal hernia: Admitted with right inguinal hernia deemed incarcerated; risk of strangulation noted. He has a number of chronic conditions, but they have been under control. He otherwise is active, he is a primary caregiver for his . No limitations either respiratory or anginal with exertion on flat ground or with stairs. In addition to anesthesia/surgery risk, at risk of perioperative atrial fibrillation is discussed with him. Continue cardiac monitoring. Continue sotalol. May be at risk of acute diastolic congestive heart failure, monitor. Will discontinue IV fluids at this time. Reviewed prior echocardiogram from January, noted normal EF, grade 3 diastolic dysfunction. Currently no evidence of decompensation of CHF. Reviewed vitals, CBC, CMP, UA, CT abdomen pelvis, EKG on my tradition sinus rhythm with sinus bradycardia. Reviewed ED provider note, discussed with ED provider, discussed with surgery and anesthesia. - Proceed with surgical repair with mesh tomorrow morning by general surgery. Plan: Atrial fibrillation : Chronic atrial fibrillation controlled on sotalol; resting heart rate often in 40s. - Continue sotalol 120 mg PO BID. - Discussed w anesthesia of baseline low heart rate. Anticoagulation management for surgery : On rivaroxaban for atrial fibrillation; last dose taken yesterday evening. - Hold rivaroxaban pre-operatively (last dose already >24 h; communicated timing to surgical team). - Resume anticoagulation when deemed safe post-operatively by surgery. Hypothyroidism : Stable on individualized levothyroxine schedule. - Continue current levothyroxine dosing schedule. Hypertension : History of hypertension; no current antihypertensive medications. - Monitor omar-operative blood pressures. Hyperlipidemia : Chronic hyperlipidemia on atorvastatin. - Continue atorvastatin 20 mg daily. Leg swelling : Intermittent lower-extremity edema managed with furosemide. - Furosemide 20 mg daily; may skip on days with travel or as needed per patient routine. PDMP PDMP Reviewed: Not Reviewed Consult Attestations Medical Necessity Statement: Admission over 2 midnights anticipated for assessment and management of incarcerated right inguinal hernia in May with underlying atrial fibrillation, diastolic dysfunction risk of CHF and additional comorbidities. and High MDM includes amount and/or complexity of data reviewed/ordered [ previous or external records, resulted lab(s)/test(s), independent test interpretation and other healthcare professional discussion] as documented Diagnoses Incarcerated right inguinal hernia K40.30
[2025-07-15] MEDS: MELATONIN 3 MG TABLET PO (19:52)
[2025-07-15] MEDS: fluticasone nasal spray 16gm Btl 1 SPRAY NASAL (21:31)
[2025-07-16] VITALS (21 sets, daily range): BP systolic 107–162; BP diastolic 62–91; PULSE 49–68; RESP 10–20; TEMP 36.3–36.8; O2SAT 92–100
[2025-07-16 03:38] LABS: Hematocrit 35.0 % (37-53); Hemoglobin 11.40 g/dL (11.27-16.99); Mean Corpuscular HGB Conc 32.6 g/dL (30-55); Mean Corpuscular Hemoglobin 30.2 pg (27-33); Mean Corpuscular Volume 92.6 fl (82-101); Nucleated Red Blood Cells % 0 %; Platelet Count 146 10^3/cmm (157-399); Red Blood Count 3.78 10^6/uL (3.85-5.65); White Blood Count 6.08 10^3/uL (3.29-11.43)
[2025-07-16 04:02] LABS: Anion Gap 13.8 (5-19); Blood Urea Nitrogen 20 mg/dL (8-23); Calcium 8.6 mg/dL (8.5-10.5); Carbon Dioxide 23 mmol/L (22-29); Chloride 105 mmol/L (98-107); Creatinine Clr Calc Pharmacy 84.8593; Glucose 91 mg/dL (65-115); Lactate (Lactic Acid level) 0.7 mmol/L (0.5-2.2); Osmolality Calculated 288 mOsm/kg (285-295); Potassium 3.8 mmol/L (3.5-5.1); Sodium 138 mmol/L (136-145)
[2025-07-16] MEDS: blistex lip oint 7 gm Tube 1 APPLIC TOPICAL (06:27)
--- NOTE | 2025-07-16 06:40 | P.PN_ITS ---
Subjective 2 Subjective: Good progression over the last 24 hours, has been passing gas tolerating liquids no abdominal pain. Plan is for OR today for right inguinal hernia repair with mesh. Vitals/I&O/Wt Last Vital Signs Temp 98.2 F 07/16/25 04:00 Pulse 52 L 07/16/25 04:00 Resp 16 07/16/25 04:00 BP 136/72 07/16/25 04:00 Pulse Ox 97 07/16/25 04:00 O2 Del Method Room Air 07/16/25 04:00 07/15/25 07/15/25 07/16/25 14:59 22:59 06:59 Intake Total 740 / 740 300 / 1040 Output Total 625 / 625 900 / 1525 Balance 115 / 115 -600 / -485 Weight last 48 hrs Weight 170 lb Weight 171 lb Physical Exam 2 GI: OTHER: Abdomen is soft nontender nondistended there is a right groin hernia, no reduction was attempted this morning Data 07/16/25 02:56 07/16/25 02:56 A&P Assessment and plan 1. Incarcerated right inguinal hernia: Plan: Doing well overnight, normal vital signs, normal white count, normal lactate level. Likelihood of bowel compromise in the setting is extremely low. Taking this in consideration we will proceed only with the right inguinal hernia repair and there is no need of a laparoscopy at this time. Patient will be given warning signs when he is discharged home to return to the hospital in case of changes in clinical status. PDMP PDMP Reviewed: Not Reviewed Attestations 2 Medical Necessity Statement*: Possible discharge today after hernia repair depending on patient progression Coding Level of Care Code Acute Code for Chg Fwd Diagnoses Incarcerated right inguinal hernia K40.30
--- NOTE | 2025-07-16 10:49 | ANES.PREANE2 ---
Pre-Anesthetic Assessment Height/Weight: Height 6 ft Weight 170 lb Temp Pulse Resp BP Pulse Ox O2 Del Method 98.2 F 51 L 18 161/79 96 Room Air 07/16/25 10:07/16/25 10:07/16/25 10:27 07/16/25 10:27 07/16/25 10:07/16/25 10:27 Preop Diagnosis: Hernia Operation Date: 07/16/25 11:10 Proposed Procedures p Inguinal Hernia Repair-OPEN(Right) - Gibson Ford MD Was Beta Pippa taken within 24 hours: Yes Was Clonidine taken within 24 hours: N/A Last intake: Intake Last Liquid Date 07/16/25 Last Liquid Time 00:00 Last Solid Date 07/14/25 Last Solid Time 17:30 Social No alcohol and No tobacco Exam alert, oriented x 3, clear to auscultation bilaterally and regular rate & rhythm Airway Submandibular: within normal limits Cervical ROM: within normal limits Mallampati: Class III Dentition: full Anesthetic Plan ASA status: 4 Anesthesia: General Other: No prior issues with anesthesia NPO since yesterday evening Patient is a very active individual, takes care of his History of hypothyroidism on Synthroid Patient has a history of mitral valve repair in 2009. No issues since that time Chronic A-fib on sotalol and Xarelto. Xarelto last taken 2 days ago Echo performed 02/13/2025 showing EF of 65%. Moderate mitral valve regurg at that time with severe elevated filling pressures Plan for GETA Medications/Allergies Home Medications ?Medication ?Instructions ?Recorded ?Confirmed ?Last Taken ?Type acetaminophen 500 mg tablet 500 mg PO Q6H PRN Fever Or Pain 03/12/20 07/15/25 Unknown History (Tylenol Extra Strength) ascorbic acid (vitamin C) 500 mg 1,000 mg PO DAILY 03/12/20 07/15/25 07/14/25 History capsule atorvastatin 20 mg tablet 20 mg PO DAILY 03/12/20 07/15/25 07/14/25 History clindamycin HCl 150 mg capsule 600 mg PO DIRECTED PRN 1 hour 03/12/20 07/15/25 Unknown History prior to any dental procedure docusate sodium 100 mg capsule 100 mg PO DAILY PRN Constipation 03/12/20 07/15/25 07/14/25 History (Colace) furosemide 20 mg tablet 20 mg PO DAILY 03/12/20 07/15/25 07/14/25 History montelukast 10 mg tablet 10 mg PO DAILY PRN allergies 03/12/20 07/15/25 07/14/25 History rivaroxaban 20 mg tablet (Xarelto) 20 mg PO DAILY 03/12/20 07/15/25 07/14/25 History erythromycin with ethanol 2 % 1 applic topical ONCE PRN Acne 03/09/23 07/15/25 Unknown History topical gel sotalol 120 mg tablet 120 mg PO BID #180 tabs 01/16/25 07/15/25 07/14/25 Rx levothyroxine 137 mcg tablet See Rx Instructions .Route .COMPLEX 07/15/25 07/15/25 07/12/25 History levothyroxine 75 mcg tablet See Rx Instructions .Route .COMPLEX 07/15/25 07/15/25 07/15/25 07:00 History melatonin 5 mg tablet 5 mg PO BEDTIME sleep 07/15/25 07/15/25 07/14/25 20:00 History citzvfkw-pg-tbufc 300 mcg-K 60 1 tab PO DAILY 07/15/25 07/15/25 07/14/25 History mcg-lycop 600 mcg-lutein 300 mcg tablet (Centrum Silver Men) omega-3s 300 aa-cen-rup-other 1 cap PO DAILY 07/15/25 07/15/25 07/14/25 History mgbtf3b-yimh oil 1,000 mg capsule ([place]-3 Fish Oil) polyethylene glycol 3350 17 17 g PO DAILY constipation 07/15/25 07/15/25 Unknown History gram/dose oral powder (Miralax) Allergies Allergy/AdvReac Type Severity Reaction Status Date / Time levofloxacin (From Levaquin) Allergy Unknown Unknown Verified 03/25/25 16:34 Penicillins Allergy Unknown Unknown Verified 03/25/25 16:34 Current Medications Generic Name Dose Route Start Last Admin Trade Name Freq PRN Reason Stop Dose Admin Camphor/Menthol/Phenol 1 applic 07/16/25 05:57 07/16/25 06:27 Blistex Lip Oint 7 Gm Tube TOPICAL 1 applic On Hold: 07/16/25 10:23 PRN PRN Administration Comment: Order held by Process DRYNESS Transfer Enoxaparin Sodium 40 mg 07/15/25 21:00 07/15/25 19:37 Enoxaparin 40 Mg/0.4 Ml Syringe SUBCUT Not Given On Hold: 07/16/25 10:23 Q24H ALONSO Comment: Order held by Process Transfer Fluticasone Propionate 1 spray 07/15/25 21:00 07/16/25 08:08 Fluticasone Nasal [place] 16gm Btl NASAL Not Given On Hold: 07/16/25 10:23 DAILY ALONSO Comment: Order held by Process Transfer Lactated Ringer's 1,000 mls @ 50 mls/hr 07/16/25 08:00 07/16/25 08:10 Lactated Ringers IV 50 mls/hr On Hold: 07/16/25 10:23 .Q20H ALONSO Administration Comment: Order held by Process Transfer Levothyroxine Sodium 75 mcg 07/16/25 06:00 07/16/25 05:55 Levothyroxine 75 Mcg Tablet PO 75 mcg On Hold: 07/16/25 10:23 MoTuWeThFr ALONSO Administration Comment: Order held by Process Transfer Melatonin 3 mg 07/15/25 21:00 07/15/25 19:52 Melatonin 3 Mg Tablet PO 3 mg On Hold: 07/16/25 10:23 BEDTIME ALONSO Administration Comment: Order held by Process Transfer Sotalol HCl 120 mg 07/15/25 18:00 07/16/25 08:08 Sotalol Hcl 120 Mg Tablet PO 120 mg On Hold: 07/16/25 10:23 BID ALONSO Administration Comment: Order held by Process Transfer [facility] Anesthesia Medical History (Updated 07/15/25 @ 13:23 by Fausto Be DO) Anticoagulation adequate with anticoagulant therapy Hypothyroidism Hyperlipidemia History of cardioversion Multiple HTN (hypertension) Atrial fibrillation Surgical History (Updated 07/15/25 @ 13:23 by Fausto Be DO) History of mitral valve repair S/P pericardiocentesis X2 Family History Father Atrial fibrillation Brother Atrial fibrillation Other Cancer Social History Smoking and tobacco/nicotine status: former use of tobacco/nicotine Data Anesthesia 07/16/25 02:56 07/16/25 02:56 Short CBC 07/15/25 07/16/25 Range/Units 08:10 02:56 WBC 8.13 6.08 (3.29-11.43) 10^3/uL Hgb 13.10 11.40 (11.27-16.99) g/dL Hct 40.2 35.0 L (37-53) % MCV 93.7 92.6 (82-101) fl Plt Count 167 146 L (157-399) 10^3/cmm Neut % (Auto) 85.4 65.6 % Neut # (Auto) 6.94 3.99 (1.8-7.7) 10^3/uL BMP 07/15/25 07/16/25 08:10 02:56 Sodium 139 138 Potassium 4.4 3.8 Chloride 103 105 Carbon Dioxide 26 23 BUN 21 20 Creatinine 0.8 0.6 L Glucose 151 H 91 Calcium 9.5 8.6 Liver Function 07/15/25 Range/Units 08:10 Total Bilirubin 0.8 (0.15-1.2) mg/dL AST 26 (0-40) U/L ALT 28 (0-41) U/L Alkaline Phosphatase 81 (40-130) U/L Albumin 4.4 (3.5-5.2) g/dL Urine 07/15/25 Range/Units 08:45 Urine Color Yellow (Yellow) Urine Appearance Clear (CLEAR) Urine pH 7.5 (5-7) Ur Specific [place] 1.018 (1.005-1.030) Urine Protein Negative (Negative) Urine Glucose (UA) Negative (Normal) Urine Ketones 2+ H (Negative) Urine Nitrate Negative (Negative) Urine Bilirubin Negative (Negative) Ur Leukocyte Esterase 1+ A (Negative) Urine RBC 0-2 (0-2) /hpf Urine WBC 0-5 (0-5) /hpf Cardiac Studies: Echocardiogram 02/13/25
[2025-07-16] MEDS: lidocaine-epi 1% 20 mL INJ INJECTION (13:58)
[2025-07-16] MEDS: BUPivacaine 0.25% INJ 10 mL INJECTION (13:58)
--- NOTE | 2025-07-16 14:03 | P.OP_ITS ---
Operative Report Date of procedure: July 16, 2025 Pre-op diagnosis: Right inguinal hernia Post-op diagnosis: Same Post-op findings: Large indirect inguinoscrotal hernia of the right side Procedure done: Right inguinal hernia repair with mesh, open Implants: Bard polypropylene mesh Surgeon: Gibson Ford MD Strategic Business Development: FAHEEM [facility] STaff Estimated blood loss: 10 Complications: None apparent Brief History: 75-year-old male who presented with incarcerated right inguinal hernia. There was questionable bowel entrapment, after observation of the better 24 hours no evidence of bowel compromise normal vital signs normal abdominal exam. Will proceed to the OR for open right inguinal hernia repair with mesh. Before proceeding to the OR risk benefits were discussed and documented. Procedure: Patient was brought into the OR, he was placed in a supine position. General anesthesia was given. I was then able to manually reduce the right inguinal hernia completely into the abdomen. The abdomen was prepped and draped in the usual sterile fashion. Timeout was conducted. I then made a 5 cm incision in the right groin, the incision was deepened until the fascia of the external oblique was identified. I then opened the fascia of the central break using the blade taking careful consideration of injuring the underlying structures, I then used a Metzenbaum to fully open the fascia from the external ring to the area overlying the internal ring. The cord structures and hernia sac were then dissected of the surrounding tissue using blunt dissection. I then surrounding the cord structures and hernia sac with a [place] drain. The cremaster muscle was opened longitudinally, the hernia sac was identified and bluntly dissected from the surrounding tissue including the spermatic cord and the spermatic vessels. The sac was very large traveling all the way down to the testicle, with careful blunt and sharp dissection I was able to fully liberate the sac. I then dissected the sac all the way down to the internal ring. The sac was opened and no evidence of contents was noted. I then suture-ligated the sac at the base taking careful consideration of not injuring any intra-abdominal structures, I then transected the sac as it was too large to be reducing through the preperitoneal space. The sac was sent to pathology as a specimen. A small lipoma of the cord was also identified and transected, this was also sent for specimen. Hemostasis was achieved. The floor of the canal appeared intact and after the sac was reduced no evidence of additional herniation was noted. I then proceeded to place a manage in the floor of the canal, the mesh was fixed to the pubic tubercle medially to the conjoined tendon superior, to the shelving edge of the inguinal ligament on the inferior direction and the tails of the mesh were used to recreate the internal ring around the cord. This was all done with #2-0 Prolene. Hemostasis was once again verified, the cord structures were returned to a regular anatomic position. I then closed external oblique aponeurosis using #2-0 Vicryl. The Bryant's fascia was closed with #3-0 Vicryl. The subcutaneous tissue was closed with #3-0 Vicryl. The skin was closed with #4-0 Monocryl. Dermabond was applied. At the end of the procedure all counts were correct the patient tolerated well the procedure was transferred to the PACU in stable condition.
--- NOTE | 2025-07-16 14:48 | ANE.PACU2 ---
Inpatient post-anesthesia follow up: Airway intact: Yes Vital signs: Temperature 97.6 F Pulse Rate 52 Respiratory Rate 17 Blood Pressure 136/57 Pulse Oximetry 98 Oxygen Delivery Me thod Room Air Oxygen Flow Rate 6 Fraction of Inspir ed Oxygen Hydration adequate: Yes Nausea and vomiting: No Pain level: 1 Mental status: Baseline
--- NOTE | 2025-07-16 15:05 | PM.PN ---
Subjective Subjective: Doing well this morning awaiting surgery. No issues or complaints. Vitals/I&O/Wt Last Vital Signs Temp 98.2 F 07/16/25 14:18 Pulse 58 L 07/16/25 14:46 Resp 17 07/16/25 14:46 BP 126/71 07/16/25 14:46 Pulse Ox 99 07/16/25 14:46 O2 Del Method Room Air 07/16/25 14:46 O2 Flow Rate 6 07/16/25 14:23 07/16/25 07/16/25 07/16/25 06:59 14:59 22:59 Intake Total 300 / 1040 1300 / 1300 Output Total 900 / 1525 3 / Balance -600 / -485 1297 / 1297 Weight last 48 hrs Weight 77.111 kg Weight 77.564 kg Physical Exam Const: COMMON NORMALS: patient oriented x3 and alert GENERAL APPEARANCE: cooperative ORIENTATION/CONSCIOUSNESS: Yes awake HENMT: COMMON NORMALS: oropharynx normal Neck/C-Spine: COMMON NORMALS: no JVD Resp: COMMON NORMALS: normal respiratory effort and clear to auscultation bilaterally AUSCULTATION: clear to auscultation bilaterally Cardio: COMMON NORMALS: no JVD, regular rhythm, S1 normal heart sound present, S2 normal heart sound present and No murmurs present (Cardio) RHYTHM: regular rhythm HEART SOUNDS: S1 normal heart sound present and S2 normal heart sound present GI: COMMON NORMALS: Normal to inspection, nondistended, normoactive bowel sounds present, Soft to palpation and non-tender PALPATION: Yes Soft to palpation Extremity: COMMON NORMALS: no joint enlargement and no pedal edema Neuro: COMMON NORMALS: patient oriented x3 and moves all extremities SENSORIUM/ORIENTATION: Yes alert Skin: COMMON NORMALS: no rashes or lesions noted GENERAL SKIN EXAM: no rashes or lesions noted Data 07/16/25 02:56 07/16/25 02:56 A&P Assessment and plan 1. Incarcerated right inguinal hernia: Hernia repair with mesh insertion for symptomatic incarcerated hernia at risk of strangulation. Discussed with nursing, immigration case worker. Reviewed vitals, CBC, BMP. Reviewed surgery note. Hernia repair performed with mesh, EBL 10 mL. Tolerated procedure well. Should be low risk for ileus, but monitor as discussed with him. Add incentive spirometer. Mobilize. Pain control, acetaminophen as needed, IV morphine if needed for severe breakthrough. Receiving gentle IV hydration, caution with fluid with risk of acute CHF. Will DC IV fluid as soon as he is resuming oral intake. Plan: Atrial fibrillation : Chronic atrial fibrillation controlled on sotalol; resting heart rate often in 40s. - Continue sotalol 120 mg PO BID. Anticoagulation management for surgery : On rivaroxaban for atrial fibrillation; last dose taken yesterday evening. - Hold rivaroxaban pre-operatively (last dose already >24 h; communicated timing to surgical team). - Resume anticoagulation when deemed safe post-operatively by surgery. Hypothyroidism : Stable on individualized levothyroxine schedule. - Continue current levothyroxine dosing schedule. Hypertension : History of hypertension; no current antihypertensive medications. - Monitor omar-operative blood pressures. Hyperlipidemia : Chronic hyperlipidemia on atorvastatin. - Continue atorvastatin 20 mg daily. Leg swelling : Intermittent lower-extremity edema managed with furosemide. - Takes furosemide 20 mg daily at home; may skip on days with travel or as needed per patient routine. PDMP PDMP Reviewed: Not Reviewed Attestations Medical Necessity Statement*: Continue admission for assessment and management after incarcerated hernia surgery repair with underlying A-fib, risk of CHF decompensation with underlying grade 3 diastolic dysfunction, additional comorbidities as above. and High MDM includes amount and/or complexity of data reviewed/ordered [ previous or external records, resulted lab(s)/test(s) and other healthcare professional discussion] and described risk of complication, morbidity or mortality of management as documented Diagnoses Incarcerated right inguinal hernia K40.30
[2025-07-16] MEDS: MELATONIN 3 MG TABLET PO (20:11)
[2025-07-16] MEDS: ATORVASTATIN 10 MG TABLET 20 MG PO (20:11)
[2025-07-17] VITALS: BP 118/70; PULSE 70; RESP 16; TEMP 36.6; O2SAT 99
[2025-07-17 04:00] VITALS: BP 136/67; PULSE 56; RESP 16; TEMP 36.4; O2SAT 98
[2025-07-17 04:59] LABS: Hematocrit 39.3 % (37-53); Hemoglobin 12.50 g/dL (11.27-16.99); Mean Corpuscular HGB Conc 31.8 g/dL (30-55); Mean Corpuscular Hemoglobin 30.6 pg (27-33); Mean Corpuscular Volume 96.1 fl (82-101); Nucleated Red Blood Cells % 0 %; Platelet Count 139 10^3/cmm (157-399); Red Blood Count 4.09 10^6/uL (3.85-5.65); White Blood Count 9.56 10^3/uL (3.29-11.43)
[2025-07-17 05:20] LABS: Blood Urea Nitrogen 22 mg/dL (8-23); Calcium 8.7 mg/dL (8.5-10.5); Carbon Dioxide 20 mmol/L (22-29); Chloride 103 mmol/L (98-107); Creatinine Clr Calc Pharmacy 74.7250; Glucose 93 mg/dL (65-115); Osmolality Calculated 285 mOsm/kg (285-295); Sodium 136 mmol/L (136-145)
[2025-07-17 05:23] LABS: Anion Gap 17.6 (5-19); Potassium 4.6 mmol/L (3.5-5.1)
[2025-07-17 05:51] VITALS: PULSE 42
--- NOTE | 2025-07-17 07:46 | PM.DCS ---
Discharge Providers Date of Admission: 07/15/25 11:43 Date of Discharge: July 17, 2025 Attending Provider at Admission: Gibson Ford MD Attending Provider at Discharge: Gibson Ford MD Primary Care Provider: Colton Shields MD Diagnoses at Discharge Discharge Diagnosis 1. Incarcerated right inguinal hernia: Reason for Visit Reason for Visit: Abd pain Hospital Course Hospital Course This is a 75-year-old male who presented to the hospital with acute abdominal pain and an incarcerated right inguinal hernia. There was initial concern for possible bowel compromise but after observation over the next 24 hours does anything abdominal pain normal white count normal labs so we decided to proceed with a right inguinal hernia repair with mesh. Procedure was done without complications patient has been doing well after the procedure, passing gas ambulating no significant pain. Hemoglobin has remained stable. He will be allowed to transition to the outpatient setting today and return to our office in 2 weeks for follow-up. Physical Exam GI: OTHER: Abdomen is soft nontender nondistended. Right groin examination shows a surgical incision that is healing well no evidence of hematoma no evidence of hematoma or seroma on the scrotum. Otherwise normal healing Discharge Data Studies Completed and Pending Completed Studies During Hospitalization Category Date Time Status CT abdomen pelvis wo con [id number] Stat Cat Scan 07/15/25 07:51 Completed Pending at discharge Category Date Time Status Basic Metabolic Panel AM LABS Lab 07/18/25 04:00 Ordered Complete Blood Count w/Auto AM LABS Lab 07/18/25 04:00 Ordered Pathology: Surgical [PTH] Routine Pth 07/16/25 14:00 Ordered Radiology Impressions Abdomen/Pelvis CT 07/15/25 07:51 IMPRESSION: 1. Fluid-filled RIGHT inguinal hernia is new since 03/05/2025. Small bowel loop abuts the inguinal hernia with a tiny amount of herniation. This loop does not appear strangulated but there is fluid dilatation of small bowel loops in the pelvis and RIGHT lower quadrant with bowel wall thickening. 2. Induration and vessels engorgement in the RIGHT lower quadrant mesentery with swirling suggesting tethered bowel. Recommend correlation for developing small bowel obstruction or possibly ischemic bowel. No pneumatosis or free air. 3. Small amount of free fluid in the pelvis. 4. No other acute findings. Notified Fausto Be DO at 07/15/2025 8:57 AM. Laboratory Results WBC 9.56 10^3/uL (3.29-11.43) 07/17/25 04:21 RBC 4.09 10^6/uL (3.85-5.65) 07/17/25 04:21 Hgb 12.50 g/dL (11.27-16.99) 07/17/25 04:21 Hct 39.3 % (37-53) 07/17/25 04:21 MCV 96.1 fl (82-101) 07/17/25 04:21 MCH 30.6 pg (27-33) 07/17/25 04:21 MCHC 31.8 g/dL (30-55) 07/17/25 04:21 RDW 13.4 % (12.1-15.1) 07/17/25 04:21 Plt Count 139 10^3/cmm (157-399) L 07/17/25 04:21 MPV 10.4 fL (7.4-10.4) 07/17/25 04:21 Neut % (Auto) 77.5 % 07/17/25 04:21 Lymph % (Auto) 7.4 % 07/17/25 04:21 [place] % (Auto) 14.5 % 07/17/25 04:21 Eos % (Auto) 0.0 % 07/17/25 04:21 Baso % (Auto) 0.2 % 07/17/25 04:21 Neut # (Auto) 7.40 10^3/uL (1.8-7.7) 07/17/25 04:21 Lymph # (Auto) 0.7 10^3/uL (0.8-4.8) L 07/17/25 04:21 [place] # (Auto) 1.4 10^3/uL (0.2-0.9) H 07/17/25 04:21 Eos # (Auto) 0.0 10^3/uL (0.0-0.8) 07/17/25 04:21 Baso # (Auto) 0.0 10^3/uL (0.0-0.1) 07/17/25 04:21 Nucleated RBC % (auto) 0 % 07/17/25 04:21 Nucleated RBCs # 0.0 /100WBC 07/17/25 04:21 Sodium 136 mmol/L (136-145) 07/17/25 04:21 Potassium 4.6 mmol/L (3.5-5.1) 07/17/25 04:21 Chloride 103 mmol/L (98-107) 07/17/25 04:21 Carbon Dioxide 20 mmol/L (22-29) L 07/17/25 04:21 Anion Gap 17.6 (5-19) 07/17/25 04:21 BUN 22 mg/dL (8-23) 07/17/25 04:21 Creatinine 0.9 mg/dL (0.7-1.2) 07/17/25 04:21 GFR Calculation Not Reportable 07/17/25 04:21 Glucose 93 mg/dL (65-115) 07/17/25 04:21 Calculated Osmolality 285 mOsm/kg (285-295) 07/17/25 04:21 Lactic Acid 1.5 mmol/L (0.5-2.2) 07/15/25 08:10 Lactate 0.7 mmol/L (0.5-2.2) 07/16/25 02:56 Calcium 8.7 mg/dL (8.5-10.5) 07/17/25 04:21 Total Bilirubin 0.8 mg/dL (0.15-1.2) 07/15/25 08:10 AST 26 U/L (0-40) 07/15/25 08:10 ALT 28 U/L (0-41) 07/15/25 08:10 Alkaline Phosphatase 81 U/L (40-130) 07/15/25 08:10 Total Protein 6.7 g/dL (6.6-8.7) 07/15/25 08:10 Albumin 4.4 g/dL (3.5-5.2) 07/15/25 08:10 Globulin 2.3 g/dL (1.3-4.6) 07/15/25 08:10 Lipase 22 U/L (13-60) 07/15/25 08:10 Urine Color Yellow (Yellow) 07/15/25 08:45 Urine Appearance Clear (CLEAR) 07/15/25 08:45 Urine pH 7.5 (5-7) 07/15/25 08:45 Ur Specific [place] 1.018 (1.005-1.030) 07/15/25 08:45 Urine Protein Negative (Negative) 07/15/25 08:45 Urine Glucose (UA) Negative (Normal) 07/15/25 08:45 Urine Ketones 2+ (Negative) H 07/15/25 08:45 Urine Blood Negative (Negative) 07/15/25 08:45 Urine Nitrate Negative (Negative) 07/15/25 08:45 Urine Bilirubin Negative (Negative) 07/15/25 08:45 Urine Urobilinogen 1.0 mg/dL (Negative) 07/15/25 08:45 Ur Leukocyte Esterase 1+ (Negative) A 07/15/25 08:45 Urine RBC 0-2 /hpf (0-2) 07/15/25 08:45 Urine WBC 0-5 /hpf (0-5) 07/15/25 08:45 Ur Squamous Epith Cells 0-5 /hpf (0-5) 07/15/25 08:45 Amorphous Sediment Not Reportable 07/15/25 08:45 Urine Bacteria None seen /hpf (NONE) 07/15/25 08:45 Hyaline Casts 2.46 /lpf 07/15/25 08:45 Vitals Last Vital Signs Temp 97.6 F 07/17/25 04:00 Pulse 42 L 07/17/25 05:51 Resp 16 07/17/25 04:00 BP 136/67 07/17/25 04:00 Pulse Ox 98 07/17/25 04:00 O2 Del Method Room Air 07/17/25 04:00 O2 Flow Rate 6 07/16/25 14:23 Discharge Plan Discharge Patient Disposition: Home Condition: Stable Prescriptions: New oxycodone 5 mg tablet 5 mg PO Q8H PRN (Reason: pain) 5 Days Qty: 14 0RF polyethylene glycol 3350 [Miralax] 17 gram powder in packet 17 g PO BID 7 Days Qty: 14 0RF Continued furosemide 20 mg tablet 20 mg PO DAILY atorvastatin 20 mg tablet 20 mg PO DAILY montelukast 10 mg tablet 10 mg PO DAILY PRN (Reason: allergies) docusate sodium [Colace] 100 mg capsule 100 mg PO DAILY PRN (Reason: Constipation) ascorbic acid (vitamin C) 500 mg capsule 1,000 mg PO DAILY acetaminophen [Tylenol Extra Strength] 500 mg tablet 500 mg PO Q6H PRN (Reason: Fever Or Pain) clindamycin HCl 150 mg capsule 600 mg PO DIRECTED PRN (Reason: 1 hour prior to any dental procedure) erythromycin with ethanol 2 % gel 1 applic topical ONCE PRN (Reason: Acne) sotalol 120 mg tablet 120 mg PO BID Qty: 180 3RF levothyroxine 137 mcg tablet See Rx Instructions .ROUTE .COMPLEX Rx Instructions: TAKE ONE-HALF TABLET BY MOUTH TWO DAYS PER WEEK( Sunday and sunday ) levothyroxine 75 mcg tablet See Rx Instructions .ROUTE .COMPLEX Rx Instructions: TAKE 1 TABLET BY MOUTH ONCE DAILY FOR 5 DAYS PER WEEK (Sunday through Sunday ) Centrum Silver Men [id number] mcg Tablet 1 tab PO DAILY [place]-3 Fish Oil 300-1,000 mg Capsule 1 cap PO DAILY melatonin 5 mg Tablet 5 mg PO BEDTIME Held Xarelto 20 mg tablet 20 mg PO DAILY Discontinued polyethylene glycol 3350 [Miralax] 17 gram/dose Powder 17 g PO DAILY District Fire Management Officer OK for DC: Hospitalist Discharge Order = DC NOW: Discharge Order (Routine); Ordered 07/17/25 Ordered By: Gibson Ford Referrals: Colton Shields MD [Primary Care Provider, Family Practice] - 7-10 days Referral Note: We have notified your physician's clinic of the need for a follow-up appointment to be scheduled. If you have not heard from them within the next 2 business days, please call them directly. Gibson Ford MD [Physician, General Surgery] Referral Note: 2 weeks Discharge Diet: Advance as tolerated Discharge Activity: Limit activity as instructed Patient Instructions: Acute Wound Care (DC), Opioid Safety, Post Anesthesia Care, Patient Portal & Noe Instructions Activity Restrictions/Additional Instructions: Continue symptom spirometer until pain is resolving and you are mobilizing to baseline to help reduce development of pneumonia. Additional MiraLAX as needed to keep stools soft to reduce straining. General Instructions: Please do not lift anything heavier than 15 pounds, for the next 4 to 6 weeks. You can walk is much as possible, this will help you recover faster. You can shower starting the day after tomorrow, let soap and water run over your wound and then pat dry. Please take your medication as indicated if you are taking opioids please do not forget to take a stool softener Warning signs: Return to the hospital if you have fever, chills, severe abdominal pain that is getting worse over time despite your pain medication or if your wounds appear purulent Discharge Attestations Time Spent in Discharge Care*: less than 30 min Quality Metrics Clinical Quality Measures [ No reported AMI, CVA or VTE this stay] Coding Level of Care Code Acute Code for Chg Fwd Diagnoses Incarcerated right inguinal hernia K40.30
[2025-07-17 07:47] VITALS: BP 136/57; PULSE 52; RESP 17; O2SAT 98
--- NOTE | 2025-07-17 07:55 | P.PN_ITS ---
Subjective 2 Subjective: He is doing well this morning, in good spirits. Pain is under control apart from having a little pain when he is sitting up to stand up from bed. He is ambulating. Discussed with him and encouraged him to spirometer. Vitals/I&O/Wt Last Vital Signs Temp 97.6 F 07/17/25 04:00 Pulse 52 L 07/17/25 07:47 Resp 17 07/17/25 07:47 BP 136/57 07/17/25 07:47 Pulse Ox 98 07/17/25 07:47 O2 Del Method Room Air 07/17/25 07:47 O2 Flow Rate 6 07/16/25 14:23 07/16/25 07/17/25 07/17/25 22:59 06:59 14:59 Intake Total 726 / 2026 700 / 2726 1000 / 1000 Output Total 675 / 678 450 / 1128 Balance 51 / 1348 250 / 1598 1000 / 1000 Weight last 48 hrs Weight 75.75 kg Weight 77.111 kg Physical Exam 2 Const: COMMON NORMALS: patient oriented x3 and alert GENERAL APPEARANCE: c ooperative ORIENTATION/CONSCIOUSNESS: Yes awake HENMT: COMMON NORMALS: oropharynx normal Neck/C-Spine: COMMON NORMALS: no JVD Resp: COMMON NORMALS: normal respiratory effort and clear to auscultation bilaterally AUSCULTATION: clear to auscultation bilaterally Cardio: COMMON NORMALS: no JVD, regular rhythm, S1 normal heart sound present, S2 normal heart sound present and No murmurs present (Cardio) RHYTHM: regular rhythm HEART SOUNDS: S1 normal heart sound present and S2 normal heart sound present GI: COMMON NORMALS: Normal to inspection, nondistended, normoactive bowel sounds present, Soft to palpation and non-tender PALPATION: Yes Soft to palpation OTHER: Postop dressing after inguinal hernia repair Extremity: COMMON NORMALS: no joint enlargement and no pedal edema Neuro: COMMON NORMALS: patient oriented x3 and moves all extremities S ENSORIUM/ORIENTATION: Yes alert Skin: COMMON NORMALS: no rashes or lesions noted GENERAL SKIN EXAM: no rashes or lesions noted Data 07/17/25 04:21 07/17/25 04:21 A&P Assessment and plan 1. Incarcerated right inguinal hernia: Status postrepair. Doing well. Discharging to follow-up with surgery in office. MiraLAX to help prevent constipation. Encouraged incentive spirometer. Discussed with the surgeon, and instructions are provided. Reviewed vitals, CBC, BMP, surgery note, discussed with surgery, nursing, case management. He is doing well and good to return home with outpatient follow-up. Plan: Atrial fibrillation : Chronic atrial fibrillation controlled on sotalol; resting heart rate often in 40s. - Continue sotalol 120 mg PO BID. Xarelto to be resumed when safe per surgery. Anticoagulation management for surgery : On rivaroxaban for atrial fibrillation; last dose taken yesterday evening. - Hold rivaroxaban - Resume anticoagulation when deemed safe post-operatively by surgery. Hypothyroidism : Stable on individualized levothyroxine schedule. - Continue current levothyroxine dosing schedule. Hypertension : History of hypertension; no current antihypertensive medications. - Monitor omar-operative blood pressures. Hyperlipidemia : Chronic hyperlipidemia on atorvastatin. - Continue atorvastatin 20 mg daily. Leg swelling : Intermittent lower-extremity edema managed with furosemide. - Takes furosemide 20 mg daily at home; may skip on days with travel or as needed per patient routine. PDMP PDMP Reviewed: Not Reviewed Attestations 2 Medical Necessity Statement*: Returning home. Coding Level of Care Code Acute Code for Chg Fwd Diagnoses Incarcerated right inguinal hernia K40.30
[2025-07-17] MEDS: polyethylene glycol 3350 Pkt 17 gm PO (08:17)
[2025-07-17 09:52] VITALS: BP 136/57; PULSE 52; RESP 16; TEMP 36.4; O2SAT 98
--- NOTE | 2025-07-17 10:04 | PC.SOCIAL ---
IMM UPdate pg 2 of IMM Updated and reviewed w/ patient. Copy provided and copy dated, initialed and placed in chart.
== END 2025-07-17 09:53 | disposition home health service (06) | DRG 351 ==
LOC: ER 09:32 → MEDSURG 11:44
PROVIDERS: Internal Medicine; Admitting Provider Surgery; Emergency Provider Family Medicine; PCP Family Medicine; Visit Provider Surgery
PROC: 0YU50JZ Supplement Right Inguinal Region with Synthetic Substitute, Open Approach (ICD-10-PCS; principal; 2025-07-16 11:00)
DX: K40.30 Unilateral inguinal hernia, with obstruction, without gangrene, not specified as recurrent (principal); I48.20 Chronic atrial fibrillation, unspecified; I50.32 Chronic diastolic (congestive) heart failure; Z79.01 Long term (current) use of anticoagulants; E03.9 Hypothyroidism, unspecified; I11.0 Hypertensive heart disease with heart failure; E78.5 Hyperlipidemia, unspecified; Z87.891 Personal history of nicotine dependence; I34.0 Nonrheumatic mitral (valve) insufficiency
CPT/HCPCS: 36415; 74176; 80048; 80053; 81001; 83605; 83690; 85025; 88302; 88304; 93005; 96372; 99285; C1781; J1100; J1650; J2405; J2704; J3010; J3373; J3490; J7030; J7050; J7120; J9999

== ENCOUNTER → 2025-07-29 10:06 | Outpatient (BNVA) | payer MEDICARE, OTHER, SELFPAY | PROVIDERS: PCP Family Medicine; Visit Provider Surgery | DX: K40.30 Unilateral inguinal hernia, with obstruction, without gangrene, not specified as recurrent (principal) | CPT/HCPCS: 99024 ==

== ENCOUNTER → 2025-09-23 14:07 | Outpatient (BNVA) | payer MEDICARE, SELFPAY | PROVIDERS: Family Provider Family Medicine; PCP Family Medicine; Visit Provider Internal Medicine Cardiovascular Disease | DX: I48.20 Chronic atrial fibrillation, unspecified (principal); Z98.890 Other specified postprocedural states; I11.0 Hypertensive heart disease with heart failure; I50.9 Heart failure, unspecified; Z87.891 Personal history of nicotine dependence; Z79.01 Long term (current) use of anticoagulants | CPT/HCPCS: 99213 ==

== ENCOUNTER → 2025-10-28 07:57 | Outpatient (BNVA) | payer MEDICARE, OTHER, SELFPAY | PROVIDERS: Family Provider Family Medicine; PCP Family Medicine; Visit Provider Surgery | DX: Z98.890 Other specified postprocedural states (principal); Z87.19 Personal history of other diseases of the digestive system | CPT/HCPCS: 99024 ==